=== PATIENT | male | born 2000 | race Asian ===

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

== ENCOUNTER 2022-10-25 07:16 | Emergency (ER) | payer OTHER ==
[~2022-10-25] VITALS: Ht 177.8 cm; Wt 89.8 kg
[2022-10-25 07:25] VITALS: BP 123/86; TEMP 99.2
== END 2022-10-25 08:38 | disposition home or self-care (01) ==
LOC: ED 07:16
DX: S00.411A Abrasion of right ear, initial encounter (principal); S50.11XA Contusion of right forearm, initial encounter; S80.811A Abrasion, right lower leg, initial encounter; V86.59XA Driver of other special all-terrain or other off-road motor vehicle injured in nontraffic accident, initial encounter; Y92.410 Unspecified street and highway as the place of occurrence of the external cause
CPT/HCPCS: 99283